=== PATIENT | male | born 1995 | race Two or more races ===

== ENCOUNTER 2020-06-09 08:21 | Outpatient (CLI) | payer OTHER | END 2020-06-09 23:59 | disposition home or self-care (01) | LOC: RAD 08:21 | PROVIDERS: ATTEND Family Medicine Adult Medicine | DX: M19.072 Primary osteoarthritis, left ankle and foot (principal); M25.872 Other specified joint disorders, left ankle and foot; M25.775 Osteophyte, left foot ==

== ENCOUNTER 2021-01-04 20:53 | Emergency (ER) | payer OTHER ==
[~2021-01-04] VITALS: Ht 162.6 cm; Wt 60.0 kg
--- NOTE | 2021-01-04 21:17 | NUR ---
INITIAL PT CONTACT. PT BIBA FROM LONGTERM C/O CHEST PAIN INCREASING OVER PAST 2 DAYS, DESCRIBED PRESURE ACROSS ENTIRE CHEST. PT DENIES SOB, N/V OR OTHER COMPLAINTS AT THIS TIME. PT PLACED ON CONTINUOUS MONITORING, CALL LIGHT AND PERSONAL BELONGINGS WITHIN REACH. AWAITING ERP
[2021-01-04] MEDS ORDERED: PLEASE ENTER HEIGHT AND WEIGHT MC SCH (21:30)
[2021-01-04] MEDS ORDERED: PLEASE ENTER ALLERGIES MC SCH (21:30)
[2021-01-04] MEDS ORDERED: IBUPROFEN 200 MG TABLET PO ONE ×2 (21:30)
[2021-01-04 21:32] LABS: ALANINE AMINOTRANSFERASE 45 U/L (12-78); ALBUMIN 4.2 g/dL (3.4-5.0); CALCIUM 9.3 mg/dL (8.5-10.1); CREATININE 1.11 mg/dL (0.7-1.3)
[2021-01-04 21:36] LABS: BASOPHILS % (AUTO) 1 % (0-1); EOSINOPHILS % (AUTO) 1 % (1-7); LYMPHOCYTES % (AUTO) 26 % (22-44); MEAN CORPUSCULAR HEMOGLOBIN 29.9 pg (27.5-34.5); MEAN CORPUSCULAR HGB CONC 34.3 g/dL (33.2-36.2); MEAN PLATELET VOLUME 8.2 fL (7.4-10.4); MONOCYTES % (AUTO) 5 % (2-9); NEUTROPHILS % (AUTO) 68 % (42-75); PLATELET COUNT 242 x10^3/uL (130-400); RED BLOOD COUNT 4.76 x10^6/uL (4.38-5.82); RED CELL DISTRIBUTION WIDTH 13.3 % (9.4-14.8)
[2021-01-04 21:37] LABS: ALKALINE PHOSPHATASE 58 U/L (45-117); BILIRUBIN,TOTAL 1.3 mg/dL (0.2-1.0); TOTAL PROTEIN 7.8 g/dL (6.4-8.2); TROPONIN I < 0.015 ng/mL (0.000-0.045)
[2021-01-04] MEDS ORDERED: IBUPROFEN 600 MG TABLET ONE (21:41)
[2021-01-04 21:51] LABS: ANION GAP 9 mmol/L (5-15); CHLORIDE 108 mmol/L (98-107)
[2021-01-04] MEDS ORDERED: MAALOX/HYOSCYAMINE/LIDOCAINE 45 ML BTL ONE (22:08)
[2021-01-04] MEDS ORDERED: MAALOX/HYOSCYAMINE/LIDOCAINE 45 ML BTL PO ONE (22:30)
[2021-01-04 23:00] VITALS: BP 114/72
== END 2021-01-04 23:05 | disposition home or self-care (01) ==
LOC: ED 21:30
DX: R07.2 Precordial pain (principal); K21.9 Gastro-esophageal reflux disease without esophagitis; J45.909 Unspecified asthma, uncomplicated
CPT/HCPCS: 36415; 71045; 80053; 83690; 84484; 85025; 93005; 99285